=== PATIENT | male | born 1955 | race Caucasian/White ===

== ENCOUNTER 2019-12-19 07:01 | Inpatient (IN) | payer OTHER ==
[~2019-12-19] VITALS: Ht 175.3 cm; Wt 72.6 kg
[2019-12-19 07:15] VITALS: Ht 175.3 cm; Wt 72.6 kg
[2019-12-19 08:14] LABS: CALCIUM 8.8 mg/dL (8.5-10.1); CARBON DIOXIDE 26.2 mmol/L (21-32); CHLORIDE SERUM 109 mmol/L (98-107); CREATININE SERUM 0.8 mg/dL (0.7-1.3); GFR1 > 60 mL/min; GLUCOSE SERUM 124 mg/dL (74-106); POTASSIUM SERUM 4.3 mmol/L (3.5-5.1); SODIUM SERUM 139 mmol/L (136-145)
[2019-12-19 08:19] LABS: ALKALINE PHOSPHATASE 112 U/L (46-116); ALT/SGPT 45 U/L (16-63); AST/SGOT 21 U/L (15-37); BILIRUBIN TOTAL 0.36 mg/dL (0.20-1.00); TOTAL PROTEIN, SERUM 6.8 g/dL (6.4-8.2)
[2019-12-19 08:20] LABS: ALBUMIN 3.2 g/dL (3.4-5.0)
[2019-12-19 09:34] LABS: BASOPHIL % 0.2 % (0-2); PLATELET COUNT 206 x10^3mcL (130-400)
[2019-12-19 09:35] LABS: RED CELL DISTRIBUTION WIDTH 15.6 % (11.5-14.5)
[2019-12-19] MEDS ORDERED: ATIVAN0.5 M1 PO (11:10)
[2019-12-19] MEDS ORDERED: ZOLOFT100 MG PO (11:11)
[2019-12-19] MEDS ORDERED: TRAZODONE100 MG PO (11:12)
[2019-12-19] MEDS ORDERED: FLOMAX0.4 MG PO (11:12)
[2019-12-19] MEDS ORDERED: ATORVASTATIN CA20 M1 PO (11:13)
[2019-12-19] MEDS ORDERED: COL100 PO (11:13)
[2019-12-19] MEDS ORDERED: ZYPREXA2.5 M1 PO (11:13)
[2019-12-19] MEDS ORDERED: ZOLOFT50 MG PO (11:14)
[2019-12-19 15:07] VITALS: BP 121/84
[2019-12-19 16:40] VITALS: BP 142/88
[2019-12-19 21:08] VITALS: BP 143/97
[2019-12-20 05:45] VITALS: BP 97/62
[2019-12-20 05:50] VITALS: BP 105/66
[2019-12-20 06:16] LABS: BASOPHIL % 0.4 % (0-2); PLATELET COUNT 152 x10^3mcL (130-400)
[2019-12-20 06:24] LABS: RED CELL DISTRIBUTION WIDTH 16.3 % (11.5-14.5)
[2019-12-20 07:01] LABS: CALCIUM 8.1 mg/dL (8.5-10.1); CARBON DIOXIDE 23.8 mmol/L (21-32); CHLORIDE SERUM 109 mmol/L (98-107); CREATININE SERUM 0.8 mg/dL (0.7-1.3); GFR1 > 60 mL/min; GLUCOSE SERUM 104 mg/dL (74-106); POTASSIUM SERUM 3.9 mmol/L (3.5-5.1); SODIUM SERUM 143 mmol/L (136-145)
[2019-12-20 12:31] VITALS: BP 145/87
[2019-12-20 16:27] VITALS: BP 108/76
[2019-12-20 20:38] VITALS: BP 112/68
[2019-12-21 05:53] VITALS: BP 131/68
[2019-12-21 07:55] VITALS: BP 99/68
[2019-12-21] MEDS ORDERED: SEN PO (09:00)
[2019-12-21] MEDS ORDERED: PRI20 PO (09:00)
[2019-12-21 12:20] VITALS: BP 98/61
[2019-12-21 16:24] VITALS: BP 90/42
[2019-12-21 16:30] VITALS: BP 90/42
== END 2019-12-21 17:48 | DRG 382 ==
LOC: ED 07:01 → DU 10:38
PROVIDERS: Emergency Medicine; Internal Medicine Gastroenterology; ADMIT Internal Medicine
PROC: 0DB68ZX Excision of Stomach, Via Natural or Artificial Opening Endoscopic, Diagnostic (ICD-10-PCS; principal; 2019-12-20 08:00)
DX: K22.11 Ulcer of esophagus with bleeding (principal); K21.0 Gastro-esophageal reflux disease with esophagitis; K44.9 Diaphragmatic hernia without obstruction or gangrene; I10 Essential (primary) hypertension; F32.9 Major depressive disorder, single episode, unspecified; G40.909 Epilepsy, unspecified, not intractable, without status epilepticus; N40.0 Benign prostatic hyperplasia without lower urinary tract symptoms; E78.5 Hyperlipidemia, unspecified; Z90.49 Acquired absence of other specified parts of digestive tract; Z88.8 Allergy status to other drugs, medicaments and biological substances; Z86.711 Personal history of pulmonary embolism; Z98.2 Presence of cerebrospinal fluid drainage device; Z79.899 Other long term (current) drug therapy
CPT/HCPCS: 43235; 97116-GP; C9113; G0378; J1200; J1610; J2250; J2310; J2765; J3010; J3490; J7042; Q0092